=== PATIENT | male | born 1980 | race Caucasian/White ===

== ENCOUNTER 2016-09-05 11:38 | Emergency (ER) | payer OTHER ==
[2016-09-05] MEDS ORDERED: Sodium Chloride 0.9% 10 ML Syringe FLUSH PRN (12:03)
[2016-09-05] MEDS ORDERED: Labetalol 100 MG/20 ML MDV IVPUSH ONE ×2 (12:14→13:32)
[2016-09-05] MEDS ORDERED: Enalaprilat 1.25 MG/ML SDV IVPUSH ONE (12:15)
[2016-09-05] MEDS ORDERED: amLODIPine 5 MG Tab PO ONE (12:16)
--- NOTE | 2016-09-05 12:23 | EDM.PDOC ---
ED HISTORY OF PRESENT ILLNESS - General Chief Complaint: Cardiovascular Problem Stated Complaint: HIGH BLOOD PRESSURE Time Seen by Provider: 09/05/16 12:02 Source of Information: Reports: Patient History Limitations: Reports: No limitations - History of Present Illness INITIAL COMMENTS - FREE TEXT/NARRATIVE: Patient presents for evaluation and treatment of high blood pressure. Patient was sent over from the clinic. Report that he had a blood pressure of 220/160. He was seen his primary care provider today for headaches. States that he is having headaches on and off for about one month. He has been taking Excedrin, 7 or 8 tabs a day. He states that this helps with the headaches. Patient was previously on a blood pressure medication but he does not know what this is. He states that he has not taken them in several months. He reports associated symptoms of "little bit "chest pain for the last month. Reports shortness of breath. He states that he is always diaphoretic. No change in this. He denies any nausea or vomiting, cough, fevers, chills, cold symptoms, lightheadedness, dizziness, syncope, blurry vision or double vision. Patient reports a strong family history of MIs at young age. He reports that his father was in his 40s for during his first heart attack. Patient reports he smokes a pack and a half a day for the last 10 years. Aside from hypertension, he denies any other chronic medical conditions or any other medications. Patient denies any recent illnesses. He denies any recent travel. - Related Data Allergies/ADRs: Allergies Allergy/AdvReac Type Severity Reaction Status Date / Time No Known Allergies Allergy Verified 03/30/15 20:10 Home Meds: Home Meds Blood-Glucose Meter, Drum-Type [Accu-Chek] 1 each ASDIRECTED #1 kit 09/05/16 [Rx] Lancets [Accu-Chek] 1 each ASDIRECTED #1 box 09/05/16 [Rx] amLODIPine/Valsartan [Amlodipine-Valsartan 5-320 mg] 1 each PO DAILY #30 tablet 09/05/16 [Rx] metFORMIN [Glucophage XR] 500 mg PO BIDMEALS #60 tab.er 09/05/16 [Rx] Past Medical History Cardiovascular History: Reports: Hypertension Musculoskeletal History: Reports: Fracture Other Musculoskeletal History: collar bone left Neurological History: Reports: Headaches, chronic Social & Family History - Family History Family Medical History: Noncontributory Cardiac: Reports: Hypertension Other Cardiac Family History: parents - Tobacco Use Smoking Status *Q: Current Every Day Smoker Years of Tobacco use: 10 Packs/Tins Daily: 1.5 - Caffeine Use Caffeine Use: Reports: None - Recreational Drug Use Recreational Drug Use: No ED ROS GENERAL - Review of Systems Review Of Systems: See Below Constitutional: Reports: diaphoresis (chronic). Denies: fever HEENT: Denies: Vision change Respiratory: Reports: shortness of breath. Denies: cough Cardiovascular: Reports: Chest pain. Denies: Lightheadedness, Syncope GI/Abdominal: Denies: Nausea, Vomiting Neurological: Reports: headache. Denies: syncope ED EXAM, GENERAL - Physical Exam Exam: See Below Exam Limited By: No limitations General Appearance: alert, WD/WN, anxious Eye Exam: bilateral eye: PERRL Respiratory/Chest: no respiratory distress, lungs clear, normal breath sounds Cardiovascular: normal peripheral pulses, regular rate, rhythm, no murmur GI/Abdominal: soft, non tender Neurological: alert, oriented, normal cognition Psychiatric: normal affect, normal mood Skin Exam: Warm, Dry, Normal color EKG INTERPRETATION EKG Date: 09/05/16 Time: 12:15 Rhythm: NSR Rate (beats/min): 90 [place]: normal P-wave: present QRS: normal ST-T: normal QT: normal EKG Interpretation Comments: sinus rhythm at 90 bpm.Q waves in V1. Q waves in III and AVF - consider old inferior wall ID. Left artial hypertrophy. St elevation 2 - early repolarization pattern. Reviewed by myself and Dr. Akhtar. Course - Vital Signs Last Recorded V/S: Last Vital Signs Temp 37.1 C 09/05/16 11:50 Pulse 86 09/05/16 16:04 Resp 17 09/05/16 16:04 BP 165/93 H 09/05/16 16:04 Pulse Ox 94 L 09/05/16 16:04 - Orders/Labs/Meds Labs: Laboratory Tests 09/05/16 09/05/16 09/05/16 Range/Units 12:16 12:16 12:16 WBC 9.98 H (4.23-9.07) K/mm3 RBC 6.55 H (4.63-6.08) M/mm3 Hgb 18.1 H (13.7-17.5) gm/L Hct 51.7 H (40.1-51.0) % MCV 78.9 L (79.0-92.2) fl MCH 27.6 (25.7-32.2) pg MCHC 35.0 (32.2-35.5) g/dl RDW Std Deviation 40.4 (35.1-43.9) fL Plt Count 242 (163-337) K/mm3 MPV 9.6 (9.4-12.3) fl Neut % (Auto) 72.6 H (34.0-67.9) % Lymph % (Auto) 18.6 L (21.8-53.1) % [place] % (Auto) 6.8 (5.3-12.2) % Eos % (Auto) 1.6 (0.8-7.0) Baso % (Auto) 0.2 (0.1-1.2) % Neut # 7.24 H (1.78-5.38) K/mm3 Lymph # 1.86 (1.32-3.57) K/mm3 [place] # 0.68 (0.30-0.82) K/mm3 Eos # 0.16 (0.04-0.54) K/mm3 Baso # 0.02 (0.01-0.08) K/mm3 Manual Slide Review Abnormal smear PT (8.0-13.0) SECONDS INR Sodium 135 L (136-145) mEq/L Potassium 3.7 (3.5-5.1) mEq/L Chloride 99 (98-107) mEq/L Carbon Dioxide 27 (21-32) mEq/L Anion Gap 12.7 (5-15) BUN 14 (7-18) mg/dL Creatinine 1.2 (0.7-1.3) mg/dL Est Cr Clr Drug Dosing 94.31 mL/min Estimated GFR (MDRD) > 60 (>60) mL/min BUN/Creatinine Ratio 11.7 L (14-18) Glucose 304 H (74-106) mg/dL Hemoglobin A1c (4.50-6.20) % Calcium 8.8 (8.5-10.1) mg/dL Total Bilirubin 0.3 (0.2-1.0) mg/dL AST 29 (15-37) U/L ALT 34 (16-63) U/L Alkaline Phosphatase 97 (46-116) U/L CK-MB (CK-2) 0.9 (0-3.6) ng/ml Troponin I 0.018 (0.00-0.056) ng/mL B-Natriuretic Peptide (0-100) pg/mL Total Protein 7.1 (6.4-8.2) g/dl Albumin 3.1 L (3.4-5.0) g/dl Globulin 4.0 gm/dL Albumin/Globulin Ratio 0.8 L (1-2) TSH 3rd Generation 0.408 (0.358-3.74) uIU/mL Urine Color (Yellow) Urine Appearance (Clear) Urine pH (5.0-8.0) Ur Specific [place] (1.005-1.030) Urine Protein (Negative) Urine Glucose (UA) (Negative) Urine Ketones (Negative) Urine Occult Blood (Negative) Urine Nitrite (Negative) Urine Bilirubin (Negative) Urine Urobilinogen (0.2-1.0) Ur Leukocyte Esterase (Negative) Urine RBC (0-5) /hpf Urine WBC (0-5) /hpf Ur Squamous Epith Cells (0-5) /hpf Urine Bacteria (FEW) /hpf Urine Mucus (FEW) /hpf 09/05/16 09/05/16 09/05/16 Range/Units 12:16 12:16 12:16 WBC (4.23-9.07) K/mm3 RBC (4.63-6.08) M/mm3 Hgb (13.7-17.5) gm/L Hct (40.1-51.0) % MCV (79.0-92.2) fl MCH (25.7-32.2) pg MCHC (32.2-35.5) g/dl RDW Std Deviation (35.1-43.9) fL Plt Count (163-337) K/mm3 MPV (9.4-12.3) fl Neut % (Auto) (34.0-67.9) % Lymph % (Auto) (21.8-53.1) % [place] % (Auto) (5.3-12.2) % Eos % (Auto) (0.8-7.0) Baso % (Auto) (0.1-1.2) % Neut # (1.78-5.38) K/mm3 Lymph # (1.32-3.57) K/mm3 [place] # (0.30-0.82) K/mm3 Eos # (0.04-0.54) K/mm3 Baso # (0.01-0.08) K/mm3 Manual Slide Review PT 10.2 (8.0-13.0) SECONDS INR 0.94 Sodium (136-145) mEq/L Potassium (3.5-5.1) mEq/L Chloride (98-107) mEq/L Carbon Dioxide (21-32) mEq/L Anion Gap (5-15) BUN (7-18) mg/dL Creatinine (0.7-1.3) mg/dL Est Cr Clr Drug Dosing mL/min Estimated GFR (MDRD) (>60) mL/min BUN/Creatinine Ratio (14-18) Glucose (74-106) mg/dL Hemoglobin A1c 8.10 H (4.50-6.20) % Calcium (8.5-10.1) mg/dL Total Bilirubin (0.2-1.0) mg/dL AST (15-37) U/L ALT (16-63) U/L Alkaline Phosphatase (46-116) U/L CK-MB (CK-2) (0-3.6) ng/ml Troponin I (0.00-0.056) ng/mL B-Natriuretic Peptide 138 H (0-100) pg/mL Total Protein (6.4-8.2) g/dl Albumin (3.4-5.0) g/dl Globulin gm/dL Albumin/Globulin Ratio (1-2) TSH 3rd Generation (0.358-3.74) uIU/mL Urine Color (Yellow) Urine Appearance (Clear) Urine pH (5.0-8.0) Ur Specific [place] (1.005-1.030) Urine Protein (Negative) Urine Glucose (UA) (Negative) Urine Ketones (Negative) Urine Occult Blood (Negative) Urine Nitrite (Negative) Urine Bilirubin (Negative) Urine Urobilinogen (0.2-1.0) Ur Leukocyte Esterase (Negative) Urine RBC (0-5) /hpf Urine WBC (0-5) /hpf Ur Squamous Epith Cells (0-5) /hpf Urine Bacteria (FEW) /hpf Urine Mucus (FEW) /hpf 09/05/16 09/05/16 Range/Units 13:58 14:59 WBC (4.23-9.07) K/mm3 RBC (4.63-6.08) M/mm3 Hgb (13.7-17.5) gm/L Hct (40.1-51.0) % MCV (79.0-92.2) fl MCH (25.7-32.2) pg MCHC (32.2-35.5) g/dl RDW Std Deviation (35.1-43.9) fL Plt Count (163-337) K/mm3 MPV (9.4-12.3) fl Neut % (Auto) (34.0-67.9) % Lymph % (Auto) (21.8-53.1) % [place] % (Auto) (5.3-12.2) % Eos % (Auto) (0.8-7.0) Baso % (Auto) (0.1-1.2) % Neut # (1.78-5.38) K/mm3 Lymph # (1.32-3.57) K/mm3 [place] # (0.30-0.82) K/mm3 Eos # (0.04-0.54) K/mm3 Baso # (0.01-0.08) K/mm3 Manual Slide Review PT (8.0-13.0) SECONDS INR Sodium (136-145) mEq/L Potassium (3.5-5.1) mEq/L Chloride (98-107) mEq/L Carbon Dioxide (21-32) mEq/L Anion Gap (5-15) BUN (7-18) mg/dL Creatinine (0.7-1.3) mg/dL Est Cr Clr Drug Dosing mL/min Estimated GFR (MDRD) (>60) mL/min BUN/Creatinine Ratio (14-18) Glucose 275 H (74-106) mg/dL Hemoglobin A1c (4.50-6.20) % Calcium (8.5-10.1) mg/dL Total Bilirubin (0.2-1.0) mg/dL AST (15-37) U/L ALT (16-63) U/L Alkaline Phosphatase (46-116) U/L CK-MB (CK-2) (0-3.6) ng/ml Troponin I < 0.017 (0.00-0.056) ng/mL B-Natriuretic Peptide (0-100) pg/mL Total Protein (6.4-8.2) g/dl Albumin (3.4-5.0) g/dl Globulin gm/dL Albumin/Globulin Ratio (1-2) TSH 3rd Generation (0.358-3.74) uIU/mL Urine Color Yellow (Yellow) Urine Appearance Clear (Clear) Urine pH 7.0 (5.0-8.0) Ur Specific [place] 1.020 (1.005-1.030) Urine Protein 3+ H (Negative) Urine Glucose (UA) 2+ H (Negative) Urine Ketones Negative (Negative) Urine Occult Blood Trace-lysed H (Negative) Urine Nitrite Negative (Negative) Urine Bilirubin Negative (Negative) Urine Urobilinogen 0.2 (0.2-1.0) Ur Leukocyte Esterase Negative (Negative) Urine RBC 5-10 H (0-5) /hpf Urine WBC 0-5 (0-5) /hpf Ur Squamous Epith Cells 0-5 (0-5) /hpf Urine Bacteria Not seen (FEW) /hpf Urine Mucus Not seen (FEW) /hpf Meds: Medications Discontinued Medications Generic Name Dose Route Start Last Admin Trade Name Jessica PRN Reason Stop Dose Admin Amlodipine Besylate 10 mg 09/05/16 12:16 09/05/16 12:29 Norvasc PO 09/05/16 12:17 10 mg ONETIME ONE Administration Aspirin 324 mg 09/05/16 12:41 09/05/16 12:46 Aspirin PO 09/05/16 12:42 324 mg ONETIME ONE Administration Enalaprilat 1.25 mg 09/05/16 12:15 09/05/16 12:31 Vasotec Iv IVPUSH 09/05/16 12:16 1.25 mg ONETIME ONE Administration Insulin Human Regular 5 unit 09/05/16 14:16 09/05/16 14:39 Humulin R SUBCUT 09/05/16 14:17 5 units ONETIME ONE Administration Labetalol HCl 20 mg 09/05/16 12:14 09/05/16 12:35 Normodyne IVPUSH 09/05/16 12:15 4 ml ONETIME ONE Administration Labetalol HCl 20 mg 09/05/16 13:32 09/05/16 13:40 Normodyne IVPUSH 09/05/16 13:33 20 mg ONETIME ONE Administration Sodium Chloride 10 ml 09/05/16 12:03 09/05/16 12:38 Saline Flush FLUSH 10 ml ASDIRECTED PRN Administration Keep Vein Open - Radiology Interpretation Free Text/Narrative:: Chest [address] Nicole: heart size is enlarged but accentuated from portable technique. Mild tortuosity of the thoracic aorta is seen .Lungs are clear. Bony structures are grossly intact. - Re-Assessments/Exams Free Text/Narrative Re-Assessment/Exam: 09/05/16 12:15 b/p at 12:08 224/158 09/05/16 12:51 I contacted [facility]. Only blood pressure medication on file is amlodipine/ valsartan 5/320 this was filled on March 07, 2016. he was given a 30 day supply. No other blood pressure medications filled. No other recent prescriptions. 09/05/16 12:53 b/p at this time 181/125 09/05/16 13:33 Patient is currently sleeping. b/p at this time 177/ 115 - Will give an additional 20mg IV labetolol. Labs have returned. WBC is 9.98, hgb is 18.1 and plts are 242 Sodium is 135, potassium is 3.7 and chloride is 99. Anion gap is 12.7. glucose is 304 - hemoglobin a1c added to labs. Creatinine is 1.2 trop is within normal limits at 0.018 cKMB is 0.9 BNP is slightly elevated at 138 TSH is within normal limits at 0.408 Pt s 10.2, INR is 0.94 09/05/16 14:27 Patient is currently chest pain free. No shortness of breath. Headache is improved. b/p is 150/114 Plan to give subq insulin and recheck sugars. Will continue to monitor a short time in the ER. I informed the patient of his labs results. He has diabetes. I educated him he needs to stop smoking. He has multiple risk factors for an ID. 09/05/16 15:50 Repeat trop is negative at <0.017 glucose is now 275 - patient did eat after insulin A1c is 8.10 b/p is 165/93 Patient would like to go home at this time. He is concerned about his dogs. Will discharge home. Discharge instructions as documented. Departure - Departure Time of Disposition: 15:34 Disposition: Home, Self-Care 01 Condition: fair Clinical Impression: Hypertension, Diabetes Prescriptions: Blood-Glucose Meter, Drum-Type [Accu-Chek] 1 each ASDIRECTED #1 kit Lancets [Accu-Chek] 1 each ASDIRECTED #1 box amLODIPine/Valsartan [Amlodipine-Valsartan 5-320 mg] 1 each PO DAILY #30 tablet metFORMIN [Glucophage XR] 500 mg PO BIDMEALS #60 tab.er Instructions: Hypertension, [id number] Referrals: Tania Lam PA-C [Primary Care Provider] - Forms: ED Department Discharge Additional Instructions: Start the metformin today. Take 1 tab PO bid. Check you blood sugar three times a day, upon waking, around noon and around dinner. Please return if your blood sugars are > 300. Start the blood pressure medication tomorrow. Take 1 tab PO daily. Take you blood pressure daily. Record this and bring it to your follow-up. Please return to the ER if your systolic (top number) is > 200. Stop smoking. Follow-up with your PCP next week. Please return to the ER should your symptoms change or worsen.
[2016-09-05] MEDS ORDERED: Aspirin 81 MG Tab.Chew PO ONE (12:41)
--- NOTE | 2016-09-05 12:53 | CR ---
Chest: Portable view of the chest was obtained. Comparison: Previous chest x-ray of 03/30/15. Heart size is enlarged but accentuated from portable technique. Mild tortuosity of the thoracic aorta is seen. Lungs are clear. Bony structures are grossly intact. Impression: 1. Nothing acute is appreciated on portable chest x-ray. Diagnostic code #1
[2016-09-05] MEDS ORDERED: Insulin Regular, Human 100 Units/ML 3 ML Vial SUBCUT ONE (14:16)
[2016-09-05 16:07] VITALS: BP 165/93
== END 2016-09-05 15:53 | disposition home or self-care (01) ==
LOC: JD.ED 11:38
DX: I10 Essential (primary) hypertension (principal); E11.9 Type 2 diabetes mellitus without complications; F17.210 Nicotine dependence, cigarettes, uncomplicated; Z79.84 Long term (current) use of oral hypoglycemic drugs; Z79.899 Other long term (current) drug therapy
CPT/HCPCS: 36415; 71010; 80053; 81001; 82553; 82947; 83036; 83880; 84443; 84484; 85025; 85610; 93005; 96372; 96374; 96375; 96376; 99284; A9270; J1817; J7050

== ENCOUNTER 2017-05-05 15:57 | Observation (INO) | payer OTHER ==
[2017-05-05] MEDS ORDERED: Sodium Chloride 0.9% 1,000 ML IV ONE ×2 (16:13→16:21)
[2017-05-05] MEDS ORDERED: Sodium Chloride 0.9% 10 ML Syringe FLUSH PRN (16:13)
[2017-05-05] MEDS ORDERED: Insulin Regular, Human 100 Units/ML 3 ML Vial IV ONE (17:46)
--- NOTE | 2017-05-05 19:48 | EDM.PDOC ---
ED HPI GENERAL MEDICAL PROBLEM - General Chief Complaint: Diabetic Complaint Stated Complaint: DIABETIC ISSUES Time Seen by Provider: 05/05/17 16:00 Source of Information: Reports: Patient History Limitations: Reports: No Limitations - History of Present Illness INITIAL COMMENTS - FREE TEXT/NARRATIVE: 36-year-old male presents for evaluation and treatment of nausea, vomiting and abdominal discomfort. Reportedly the symptoms have been going on for the last 3 days. Patient saw his primary care provider, Tania Lam, today. He was found to have a blood sugar of 826. He is a known diabetic. Currently on Farxiga and metformin twice a day. He was given 1 L of fluids in the clinic instructed to return him to the ER. States prior to coming to the ER he stopped at [employer] and had some chicken nuggets. Reports current nausea, vomiting or abdominal discomfort. Denies any headaches. Patient's A1c the clinic today was 14.9. States he has been seen a hide tanner. Reports he never checks his blood sugars. Patient also complains of some chest pain. Reports this has been present for the last month. Has never seen anybody for this chest pain. Chest Pain Score (Numeric/FACES): 7 - Related Data Allergies Allergy/AdvReac Type Severity Reaction Status Date / Time No Known Allergies Allergy Verified 05/05/17 16:07 Home Meds: Home Meds Blood-Glucose Meter, Drum-Type [Accu-Chek] 1 each ASDIRECTED #1 kit 09/05/16 [Rx] Lancets [Accu-Chek] 1 each ASDIRECTED #1 box 09/05/16 [Rx] metFORMIN [Glucophage XR] 500 mg PO BIDMEALS #60 tab.er 09/05/16 [Rx] Dapagliflozin Propanediol [Farxiga] 10 mg PO DAILY 05/05/17 [History] amLODIPine/Valsartan [Amlodipine-Valsartan 5-320 mg] 10 - 320 mg PO DAILY [History] atorvaSTATin [Lipitor] 40 mg PO DAILY 05/05/17 [History] Past Medical History Cardiovascular History: Reports: Hypertension Gastrointestinal History: Reports: GERD Musculoskeletal History: Reports: Fracture Other Musculoskeletal History: collar bone left Neurological History: Reports: Headaches, Chronic Endocrine/Metabolic History: Reports: Diabetes, Type II Social & Family History - Family History Family Medical History: Noncontributory Cardiac: Reports: Hypertension Other Cardiac Family History: parents - Tobacco Use Smoking Status *Q: Current Every Day Smoker Years of Tobacco use: 15 Packs/Tins Daily: 1 - Caffeine Use Caffeine Use: Reports: Coffee, Soda - Recreational Drug Use Recreational Drug Use: No ED ROS GENERAL - Review of Systems Review Of Systems: See Below Cardiovascular: Reports: Chest Pain GI/Abdominal: Reports: Abdominal Pain, Nausea, Vomiting Neurological: Denies: Headache ED EXAM GENERAL NO PERIP PULSE - Physical Exam Exam: See Below Exam Limited By: No Limitations General Appearance: Alert, WD/WN, No Apparent Distress Ears: Normal External Exam Nose: Normal Inspection Throat/Mouth: Normal Inspection, Other (dry mucus membranes) Respiratory/Chest: No Respiratory Distress, Lungs Clear Cardiovascular: Normal Peripheral Pulses, Regular Rate, Rhythm, No Murmur GI/Abdominal: Soft, Non-Tender Neurological: Alert, Normal Cognition Psychiatric: Normal Affect, Normal Mood Skin Exam: Warm, Dry, Normal Color EKG INTERPRETATION EKG Date: 05/05/17 Time: 16:35 Rhythm: NSR Rate (Beats/Min): 93 [place]: Normal P-Wave: Present QRS: Normal ST-T: Normal QT: Normal Comparison: NA - No Prior EKG EKG Interpretation Comments: NSR at 93 bpm. No ischemic changes. Early repolarization. No significant changes from 09-05-16. Reviewed by myself and Dr. Rico. Course - Vital Signs Last Recorded V/S: Last Vital Signs Temp 36.6 C 05/05/17 21:40 Pulse 82 05/05/17 21:40 Resp 16 05/05/17 21:40 BP 164/96 H 05/05/17 21:40 Pulse Ox 94 L 05/05/17 22:35 - Orders/Labs/Meds Orders: Active Orders 24 hr Category Date Time Status Cardiac Monitoring [RC] . DIRECTED Care 05/05/17 16:22 Active EKG 12 Lead [EKG Documentation Completion] [RC] STAT Care 05/05/17 16:21 Active Chest 1V Frontal [CR] Stat Exams 05/05/17 17:13 Taken Sodium Chloride 0.9% [Saline Flush] Med 05/05/17 16:13 Active 10 ml FLUSH ASDIRECTED PRN Peripheral IV Insertion Adult [OM.PC] Routine Oth 05/05/17 16:13 Ordered Medication Orders Acetaminophen (Tylenol) 650 mg PO Q4H PRN PRN Reason: Pain (Mild 1-3)/fever Albuterol/Ipratropium (Duoneb 3.0-0.5 Mg/3 Ml) 3 ml NEB Q4H PRN PRN Reason: Shortness Of Breath/wheezing Amlodipine Besylate (Norvasc) 5 mg PO DAILY [facility], [facility] Dextrose/Water (Dextrose 50% In Water) 50 ml IVPUSH ASDIRECTED PRN PRN Reason: Hypoglycemia Hydralazine HCl (Apresoline) 20 mg PO Q6H PRN PRN Reason: Hypertension Sodium Chloride (Normal Saline) 1,000 mls @ 100 mls/hr IV ASDIRECTED [facility], [facility]–1983 Last Admin: 05/05/17 20:31 Dose: 125 mls/hr Insulin Aspart (Novolog) 0 unit SUBCUT QIDACANDBED FORMERLY [facility], 1928–1983 PRN Reason: Protocol Losartan Potassium (Cozaar) 150 mg PO DAILY [facility] Metoprolol Tartrate (Lopressor) 5 mg IVPUSH Q4H PRN PRN Reason: Tachycardia Miscellaneous Information (Remove Patch) 1 ea TRDERM DAILY [facility], [facility] Nicotine (Habitrol) 21 mg TRDERM DAILY [facility]1983 Ondansetron HCl (Zofran Odt) 4 mg PO Q6H PRN PRN Reason: nausea, able to take PO Ondansetron HCl (Zofran) 4 mg IV Q6H PRN PRN Reason: Nausea/Vomiting Rosuvastatin Calcium (Crestor) 10 mg PO DAILY [facility] Sodium Chloride (Saline Flush) 10 ml FLUSH ASDIRECTED PRN PRN Reason: Keep Vein Open Last Admin: 05/05/17 16:24 Dose: 10 ml Labs: Laboratory Tests 05/05/17 05/05/17 05/05/17 Range/Units 16:13 16:23 16:23 WBC 9.98 H (4.23-9.07) K/mm3 RBC 5.63 (4.63-6.08) M/mm3 Hgb 15.9 (13.7-17.5) gm/L Hct 45.2 (40.1-51.0) % MCV 80.3 (79.0-92.2) fl MCH 28.2 (25.7-32.2) pg MCHC 35.2 (32.2-35.5) g/dl RDW Std Deviation 39.1 (35.1-43.9) fL Plt Count 203 (163-337) K/mm3 MPV 10.0 (9.4-12.3) fl Neut % (Auto) 54.5 (34.0-67.9) % Lymph % (Auto) 31.8 (21.8-53.1) % [place] % (Auto) 10.8 (5.3-12.2) % Eos % (Auto) 2.2 (0.8-7.0) Baso % (Auto) 0.3 (0.1-1.2) % Neut # (Auto) 5.44 H (1.78-5.38) K/mm3 Lymph # (Auto) 3.17 (1.32-3.57) K/mm3 [place] # (Auto) 1.08 H (0.30-0.82) K/mm3 Eos # (Auto) 0.22 (0.04-0.54) K/mm3 Baso # (Auto) 0.03 (0.01-0.08) K/mm3 Puncture Site Lt radial ABG pH 7.42 (7.35-7.45) ABG pCO2 39.1 (35.0-45.0) mmHg ABG pO2 84.0 (80.0-100.0) mmHg ABG HCO3 25.0 (22.0-26.0) meq/L ABG O2 Saturation 97.6 H (96.0-97.0) % ABG Base Excess 1.1 (-2-2.0) Ray Test Positive FiO2 0.00 L (21.00-100.00) % Sodium 134 L (136-145) mEq/L Potassium 3.9 (3.5-5.1) mEq/L Chloride 98 (98-107) mEq/L Carbon Dioxide 27 (21-32) mEq/L Anion Gap 12.9 (5-15) BUN 17 (7-18) mg/dL Creatinine 1.2 (0.7-1.3) mg/dL Est Cr Clr Drug Dosing 93.41 mL/min Estimated GFR (MDRD) > 60 (>60) mL/min BUN/Creatinine Ratio 14.2 (14-18) Glucose 584 H* (74-106) mg/dL Serum Osmolality 314 H (280-300) mosm/kg Calcium 8.6 (8.5-10.1) mg/dL Magnesium (1.8-2.4) mg/dl Total Bilirubin 0.4 (0.2-1.0) mg/dL AST 29 (15-37) U/L ALT 43 (16-63) U/L Alkaline Phosphatase 104 (46-116) U/L Troponin I (0.00-0.056) ng/mL C-Reactive Protein (<1.0) mg/dL Total Protein 6.5 (6.4-8.2) g/dl Albumin 2.8 L (3.4-5.0) g/dl Globulin 3.7 gm/dL Albumin/Globulin Ratio 0.8 L (1-2) Urine Color (Yellow) Urine Appearance (Clear) Urine pH (5.0-8.0) Ur Specific [place] (1.005-1.030) Urine Protein (Negative) Urine Glucose (UA) (Negative) Urine Ketones (Negative) Urine Occult Blood (Negative) Urine Nitrite (Negative) Urine Bilirubin (Negative) Urine Urobilinogen (0.2-1.0) Ur Leukocyte Esterase (Negative) Urine RBC (0-5) /hpf Urine WBC (0-5) /hpf Ur Epithelial Cells (0-5) /hpf Urine Bacteria (FEW) /hpf Urine Mucus (FEW) /hpf Ketones (0.0-0.3) mM 05/05/17 05/05/17 05/05/17 Range/Units 16:23 16:23 17:30 WBC (4.23-9.07) K/mm3 RBC (4.63-6.08) M/mm3 Hgb (13.7-17.5) gm/L Hct (40.1-51.0) % MCV (79.0-92.2) fl MCH (25.7-32.2) pg MCHC (32.2-35.5) g/dl RDW Std Deviation (35.1-43.9) fL Plt Count (163-337) K/mm3 MPV (9.4-12.3) fl Neut % (Auto) (34.0-67.9) % Lymph % (Auto) (21.8-53.1) % [place] % (Auto) (5.3-12.2) % Eos % (Auto) (0.8-7.0) Baso % (Auto) (0.1-1.2) % Neut # (Auto) (1.78-5.38) K/mm3 Lymph # (Auto) (1.32-3.57) K/mm3 [place] # (Auto) (0.30-0.82) K/mm3 Eos # (Auto) (0.04-0.54) K/mm3 Baso # (Auto) (0.01-0.08) K/mm3 Puncture Site ABG pH (7.35-7.45) ABG pCO2 (35.0-45.0) mmHg ABG pO2 (80.0-100.0) mmHg ABG HCO3 (22.0-26.0) meq/L ABG O2 Saturation (96.0-97.0) % ABG Base Excess (-2-2.0) Ray Test FiO2 (21.00-100.00) % Sodium (136-145) mEq/L Potassium (3.5-5.1) mEq/L Chloride (98-107) mEq/L Carbon Dioxide (21-32) mEq/L Anion Gap (5-15) BUN (7-18) mg/dL Creatinine (0.7-1.3) mg/dL Est Cr Clr Drug Dosing mL/min Estimated GFR (MDRD) (>60) mL/min BUN/Creatinine Ratio (14-18) Glucose (74-106) mg/dL Serum Osmolality (280-300) mosm/kg Calcium (8.5-10.1) mg/dL Magnesium 2.0 (1.8-2.4) mg/dl Total Bilirubin (0.2-1.0) mg/dL AST (15-37) U/L ALT (16-63) U/L Alkaline Phosphatase (46-116) U/L Troponin I < 0.017 (0.00-0.056) ng/mL C-Reactive Protein 0.7 (<1.0) mg/dL Total Protein (6.4-8.2) g/dl Albumin (3.4-5.0) g/dl Globulin gm/dL Albumin/Globulin Ratio (1-2) Urine Color Yellow (Yellow) Urine Appearance Clear (Clear) Urine pH 6.0 (5.0-8.0) Ur Specific [place] 1.010 (1.005-1.030) Urine Protein 1+ H (Negative) Urine Glucose (UA) 2+ H (Negative) Urine Ketones Negative (Negative) Urine Occult Blood Trace-intact H (Negative) Urine Nitrite Negative (Negative) Urine Bilirubin Negative (Negative) Urine Urobilinogen 0.2 (0.2-1.0) Ur Leukocyte Esterase Trace H (Negative) Urine RBC 0-5 (0-5) /hpf Urine WBC 5-10 H (0-5) /hpf Ur Epithelial Cells 0-5 (0-5) /hpf Urine Bacteria Few (FEW) /hpf Urine Mucus Not seen (FEW) /hpf Ketones 0.15 (0.0-0.3) mM Meds: Medications Generic Name Dose Route Start Last Admin Trade Name Freq PRN Reason Stop Dose Admin Acetaminophen 650 mg 05/05/17 21:52 Tylenol PO Q4H PRN Pain (Mild 1-3)/fever Albuterol/Ipratropium 3 ml 05/05/17 21:52 Duoneb 3.0-0.5 Mg/3 Ml NEB Q4H PRN Shortness Of Breath/wheezing Amlodipine Besylate 5 mg 05/06/17 09:00 Norvasc PO DAILY [facility], [facility]–1983 Dextrose/Water 50 ml 05/05/17 22:07 Dextrose 50% In Water IVPUSH ASDIRECTED PRN Hypoglycemia Hydralazine HCl 20 mg 05/05/17 22:48 Apresoline PO Q6H PRN Hypertension Sodium Chloride 1,000 mls @ 100 mls/hr 05/05/17 20:15 05/05/17 20:31 Normal Saline IV 125 mls/hr ASDIRECTED [facility], [facility]1983 Administration Insulin Aspart 0 unit 05/05/17 22:15 Novolog SUBCUT QIDACANDBED [facility], [facility]–1983 Protocol Losartan Potassium 150 mg 05/06/17 09:00 Cozaar PO DAILY [facility]1983 Metoprolol Tartrate 5 mg 05/05/17 22:48 Lopressor IVPUSH Q4H PRN Tachycardia Miscellaneous Information 1 ea 05/06/17 09:00 Remove Patch TRDERM DAILY [facility], [facility]1983 Nicotine 21 mg 05/06/17 09:00 Habitrol TRDERM DAILY [facility]1983 Ondansetron HCl 4 mg 05/05/17 21:52 Zofran Odt PO Q6H PRN nausea, able to take PO Ondansetron HCl 4 mg 05/05/17 21:52 Zofran IV Q6H PRN Nausea/Vomiting Rosuvastatin Calcium 10 mg 05/06/17 09:00 Crestor PO DAILY SERA Sodium Chloride 10 ml 05/05/17 16:13 05/05/17 16:24 Saline Flush FLUSH 10 ml ASDIRECTED PRN Administration Keep Vein Open Discontinued Medications Generic Name Dose Route Start Last Admin Trade Name Jessica PRN Reason Stop Dose Admin Sodium Chloride 1,000 mls @ 999 mls/hr 05/05/17 16:13 05/05/17 16:25 Normal Saline IV 05/05/17 17:13 999 mls/hr ONETIME ONE Administration Sodium Chloride 1,000 mls @ 999 mls/hr 05/05/17 16:21 05/05/17 17:36 Normal Saline IV 05/05/17 17:21 999 mls/hr ONETIME ONE Administration Insulin Human Regular 100 unit 101 mls @ 0 mls/hr 05/05/17 18:00 05/05/17 18: 56 / Sodium Chloride IV 0.04 unit/kg/hr TITRATE SERA 5.5 mls/hr Protocol Administration 0.05 UNIT/KG/HR Insulin Human Regular 5 unit 05/05/17 17:46 05/05/17 18:54 Humulin R IV 05/05/17 17:47 5 unit ONETIME ONE Administration Nicotine 21 mg 05/05/17 20:42 05/05/17 20:51 Habitrol TRDERM 05/05/17 20:43 21 mg ONETIME ONE Administration - Radiology Interpretation Free Text/Narrative:: 1 view chest xray shows no acute intrathoracic process. - Re-Assessments/Exams Free Text/Narrative Re-Assessment/Exam: 05/05/17 18:56 I reviewed the labs, EKG and chest x-ray with the patient. Given his elevated blood sugar of 826 prior to arrival in the ER and his continued elevated blood sugars in the 500s on the ER we'll plan to admit him. He has received 5 units the bolus and started drip of 0.05 units per kilogram per hour. I spoke with Dr. Bradley, hospitalist on-call, she agrees to admit the patient. .05/05/17 20:38 Blood sugar at this time is 271. Insulin drip stopped. 05/05/17 20:51 Patient is asking for a nicotine patch. Reports he smokes 2 packs a day. 21mg patch applied. Departure - Departure Time of Disposition: 21:30 Disposition: Refer to Observation Condition: Fair Clinical Impression: Hyperglycemia, Hyperosmolality - Discharge Information - My Orders Last 24 Hours: My Active Orders 05/05/17 16:13 Sodium Chloride 0.9% [Saline Flush] 10 ml FLUSH ASDIRECTED PRN Peripheral IV Insertion Adult [OM.PC] Routine 05/05/17 16:21 EKG 12 Lead [EKG Documentation Completion] [RC] STAT 05/05/17 16:22 Cardiac Monitoring [RC] . DIRECTED 05/05/17 17:13 Chest 1V Frontal [CR] Stat - Assessment/Plan Last 24 Hours: My Active Orders 05/05/17 16:13 Sodium Chloride 0.9% [Saline Flush] 10 ml FLUSH ASDIRECTED PRN Peripheral IV Insertion Adult [OM.PC] Routine 05/05/17 16:21 EKG 12 Lead [EKG Documentation Completion] [RC] STAT 05/05/17 16:22 Cardiac Monitoring [RC] . DIRECTED 05/05/17 17:13 Chest 1V Frontal [CR] Stat
--- NOTE | 2017-05-05 20:15 | PCM.HP ---
H&P History of Present Illness - General Date of Service: 05/05/17 Source of Information: Patient, Old Records, Provider, RN, Significant Other History Limitations: Reports: No Limitations - History of Present Illness Initial Comments - Free Text/Narative: Jhony Wong is a 36 yo male who presented to our ED today after being sent over from [facility] in [place]. He was seen today by GIOVANA Cisneros for nausea, vomiting and abdominal discomfort. He reports symptoms have been ongoing for the last 3 days. He was found to have a blood sugar of 826. His known diabetic currently on Farxiga and metformin twice a day. He was given 1 L of fluids at the clinic and told to report to the ER for further treatment. Prior to presenting across the street in the ED he reportedly went to [employer] to eat some chicken nuggets. In the ER he reported nausea, vomiting, and abdominal discomfort. Denied any headaches. A1c was checked at [place] and found to be 14.9. He reported he sees a rn diabetes educator, however he states he "never checks his blood sugars." While in the ED he also complained of some chest pain that has been present for the last month. He had not seen anybody for this. Once in the ER at 12-lead EKG was obtained. His agricultural and forestry supervisor by the ER provider as normal sinus rhythm at 93 bpm. There was no ectopy noted and no changes from prior EKG obtained 09/05/16. Vital signs were temp normal at 36.6 Celsius. Pulse 100. Respirations slightly elevated at 24. Blood pressure 150/102. Pulse ox 94. Labs were obtained: WBC slightly elevated at 9.98. Hemoglobin normal at 15.9 and hematocrit 45.2. He was normocytic. Platelet normal at 203, 000. Neutrophils normal at 54.5%. ABG was obtained and the left radial. PH normal at 7.42. PCO2 normal at 39.1. PO2 normal at 84. Bicarbonate normal at 25. Oxygen saturation elevated at 97.6. Base excess 1.1. This is on 0 L of oxygen. Sodium was slightly low at 134. Potassium normal 3.9. Chloride 98. Carbon dioxide 27. Anion gap was normal at 12.9. BUN was normal at 17. Creatinine on the high end of normal at 1.2. EGFR greater than 60. Glucose on presentation to the ED was 584. Serum osmolality high at 314. Calcium 8.6. Magnesium 2.0. Total bilirubin 0.4. Liver enzymes were good with AST at 29. ALT 43. Alkaline phosphatase at 104. Troponin and was negative at 0.017. CRP was 0.7. Albumin was low at 2.8. UA was negative however one plus protein and 2+ glucose was noted. There was trace intact urine occult blood. Few urine bacteria were seen. Urine ketones were normal at 0.15. The patient was given multiple saline boluses as well as an insulin drip. Humulin R 5 units was given. A 21 mg Habitrol patch was also applied. Chest x-ray was obtained and no acute changes were noted pending radiologist read. The patient carries a medical history of hypertension, GERD, chronic headaches, type II DM. He is a current every day smoker and reports one to 2 packs daily. He was subsequently admitted for observation to the medical floor. He would like to be a DNR/DNI. His PCP is Tania Lam PA-C at [facility] in [place]. Chest Pain Score (Numeric/FACES): 0 - Related Data Allergies/Adverse Reactions: Allergies Allergy/AdvReac Type Severity Reaction Status Date / Time No Known Allergies Allergy Verified 05/05/17 16:07 Home Medications: Home Meds Blood-Glucose Meter, Drum-Type [Accu-Chek] 1 each ASDIRECTED #1 kit 09/05/16 [Rx] Lancets [Accu-Chek] 1 each ASDIRECTED #1 box 09/05/16 [Rx] metFORMIN [Glucophage XR] 500 mg PO BIDMEALS #60 tab.er 09/05/16 [Rx] Dapagliflozin Propanediol [Farxiga] 10 mg PO DAILY 05/05/17 [History] amLODIPine/Valsartan [Amlodipine-Valsartan 5-320 mg] 10 - 320 mg PO DAILY [History] atorvaSTATin [Lipitor] 40 mg PO DAILY 05/05/17 [History] Past Medical History Cardiovascular History: Reports: Hypertension Gastrointestinal History: Reports: GERD Musculoskeletal History: Reports: Fracture Other Musculoskeletal History: collar bone left Neurological History: Reports: Headaches, Chronic Endocrine/Metabolic History: Reports: Diabetes, Type II Social & Family History - Family History Family Medical History: Noncontributory Cardiac: Reports: Hypertension Other Cardiac Family History: parents - Tobacco Use Smoking Status *Q: Current Every Day Smoker Years of Tobacco use: 15 Packs/Tins Daily: 1 - Caffeine Use Caffeine Use: Reports: Coffee, Soda - Recreational Drug Use Recreational Drug Use: No H&P Review of Systems - Review of Systems: Review Of Systems: See Below General: Reports: No Symptoms. Denies: Fever, Chills, Weakness, Fatigue, Diaphoresis, Decreased Appetite HEENT: Reports: No Symptoms. Denies: Dysphasia, Ear Pain, Eye Pain, Headaches, Hearing Changes, Post Nasal Drip, Sore Throat, Visual Changes Pulmonary: Reports: No Symptoms. Denies: Shortness of Breath, Wheezing, Pleuritic Chest Pain, Cough, Sputum Cardiovascular: Reports: No Symptoms. Denies: Chest Pain, Palpitations, Dyspnea on Exertion, PND, Edema, Lightheadedness Gastrointestinal: Reports: No Symptoms. Denies: Abdominal Pain, Anorexia, Black Stool, Bloody Stool, Constipation, Diarrhea, Nausea, Vomiting Genitourinary: Reports: No Symptoms. Denies: Dysuria, Frequency, Burning, Pain , Urgency Musculoskeletal: Reports: No Symptoms. Denies: Neck Pain, Shoulder Pain, Arm Pain, Back Pain, Hand Pain, Leg Pain, Foot Pain, Joint Pain, Joint Swelling, Muscle Pain, Muscle Stiffness Skin: Reports: No Symptoms Psychiatric: Reports: No Symptoms. Denies: Confusion, Depression, Mood Lability , Anxiety, Hallucinations Neurological: Reports: No Symptoms. Denies: Confusion, Dizziness, Headache, Numbness, Pre-Existing Deficit, Tingling, Trouble Speaking, Difficulty Walking, Weakness, Change in Speech, Gait Disturbance Hematologic/Lymphatic: Reports: No Symptoms Immunologic: Reports: No Symptoms Exam - Exam Exam: See Below - Vital Signs Vital Signs: Last Vital Signs Temp 97.9 F 05/05/17 16:07 Pulse 100 05/05/17 16:07 Resp 24 H 05/05/17 16:07 BP 150/102 H 05/05/17 16:07 Pulse Ox 94 L 05/05/17 16:07 Weight: 244 lb - Exam Quality Assessment: DVT Prophylaxis General: Alert, Oriented, Cooperative. No: Mild Distress HEENT: Conjunctiva Clear, EACs Clear, EOMI, Hearing Intact, Mucosa Moist & Jenera , Nares Patent, Normal Nasal Septum, Posterior Pharynx Clear, PERRLA Neck: Supple, Trachea Midline. No: JVD Lungs: Clear to Auscultation, Normal Respiratory Effort, Decreased Breath Sounds Cardiovascular: Regular Rate, Regular Rhythm GI/Abdominal Exam: Normal Bowel Sounds, Soft, Non-Tender, No Organomegaly, No Distention, No Abnormal Bruit, No Mass, Pelvis Stable (Male) Exam: Deferred Rectal (Males) Exam: Deferred Back Exam: Normal Inspection, Full Range of Motion Extremities: Normal Inspection, Normal Range of Motion, Non-Tender, No Pedal Edema, Normal Capillary Refill Peripheral Pulses: 2+: Radial (L), Radial (R), Posterior Tibial (L), Posterior Tibial (R), Dorsalis Pedis (L), Dorsalis Pedis (R) Skin: Warm, Dry, Intact Neurological: Cranial Nerves Intact (Grossly) Neuro Extensive - Mental Status: Alert, Oriented x3, Normal Mood/Affect, Normal Cognition, Memory Intact Neuro Extensive - Motor, Sensory, Reflexes: CN II-XII Intact (Grossly) Psychiatric: Alert, Normal Affect, Normal Mood - Patient Data Result Diagrams: 05/05/17 16:23 05/05/17 16:23 *Q Meaningful Use (ADM) - VTE *Q VTE Criteria *Q: - Stroke *Q Stroke Criteria *Q: - AMI *Q AMI Criteria *Q: - Problem List (1) Hyperglycemia due to type 2 diabetes mellitus SNOMED Code(s): 487232178376688 ICD Code: E11.65 - TYPE 2 DIABETES MELLITUS WITH HYPERGLYCEMIA Status: Acute Priority: High Current Visit: Yes Qualifiers: Diabetes mellitus exterminator termite insulin use: without custodial use Qualified Code(s): E11.65 - Type 2 diabetes mellitus with hyperglycemia (2) Diabetes SNOMED Code(s): 23311733 ICD Code: E11.9 - TYPE 2 DIABETES MELLITUS WITHOUT COMPLICATIONS Status: Chronic Priority: High Current Visit: Yes Qualifiers: Diabetes mellitus type: type 2 Diabetes mellitus complication status: with unspecified complications Diabetes mellitus custodial insulin use: without exterminator termite use Qualified Code(s): E11.8 - Type 2 diabetes mellitus with unspecified complications (3) Hypertension SNOMED Code(s): 66832041 ICD Code: I10 - ESSENTIAL (PRIMARY) HYPERTENSION Status: Chronic Priority : Low Current Visit: No Qualifiers: Hypertension type: essential hypertension Qualified Code(s): I10 - Essential (primary) hypertension (4) Hyperlipidemia associated with type 2 diabetes mellitus SNOMED Code(s): 172224208820 ICD Code: E11.69 - TYPE 2 DIABETES MELLITUS WITH OTHER SPECIFIED COMPLICATION ; E78.5 - HYPERLIPIDEMIA, UNSPECIFIED Status: Chronic Priority: Low Current Visit: No (5) Obesity (BMI 30.0-34.9) SNOMED Code(s): 372357921 ICD Code: E66.9 - OBESITY, UNSPECIFIED Status: Chronic Priority: High Current Visit: Yes (6) Tobacco use disorder SNOMED Code(s): 364148892 ICD Code: F17.200 - NICOTINE DEPENDENCE, UNSPECIFIED, UNCOMPLICATED Status : Chronic Priority: High Current Visit: Yes Problem List Initiated/Reviewed/Updated: Yes Orders Last 24hrs: Active Orders 24 hr Category Date Time Status Sodium Chloride 0.9% [Normal Saline] 1,000 ml Med 05/05/17 20:15 Active IV ASDIRECTED Medication Orders Insulin Human Regular 100 unit (/ Sodium Chloride) 101 mls @ 0 mls/hr IV TITRATE SERA; 0.05 UNIT/KG/HR PRN Reason: Protocol Last Admin: 05/05/17 18:56 Dose: 0.04 unit/kg/hr, 5.5 mls/hr Sodium Chloride (Normal Saline) 1,000 mls @ 125 mls/hr IV ASDIRECTED SERA Sodium Chloride (Saline Flush) 10 ml FLUSH ASDIRECTED PRN PRN Reason: Keep Vein Open Last Admin: 05/05/17 16:24 Dose: 10 ml Assessment/Plan Comment:: I/P: Hyperglycemia with Type II DM -Blood glucose reportedly 826 at [place], 584 at ED presentation and 271 prior to being admitted for observation -ABG good -Serum osmolality 314 -Anion gap 12.9 -Given 1L bolus at [place] and multiple boluses of NS in ED -Insulin drip started in ED - discontinued -A1C reportedly 14.9 at [place] -Pt. reports he has glucometer at home but never checks sugars as he "is afraid of needles." -He reportedly sees rn diabetes educator at [place] -Had conversation with patient about possible complications of diabetes including blindness, limb amputation, cardiac complications, and ED. -ADA diet -Hold oral diabetic meds for now -Sliding scale insulin with blood glucose checks as ordered -Fluids as ordered -natural resources extension educator consult -Dietitian consult Chronic: HTN - home meds and PRN BP meds GERD - stable Chronic headaches Tobacco use disorder -nicotine patch and smoking cessation counseling Obesity - dietitian consult Plan: Admit to observation with telemetry. CM/SW for discharge planning Home medications as indicated Routine AM labs PE/DVT prophylaxis: ambulation and VASYL Hose Other orders as indicated above Code status: DNR/DNI. His PCP is Tania Lam PA-C at [facility] here in [place]
[2017-05-05] MEDS: Sodium Chloride 0.9% 1,000 ML IV SCH (20:31)
[2017-05-05] MEDS ORDERED: Nicotine 21 MG/24 Hr Patch TRDERM ONE (20:42)
[2017-05-05] MEDS ORDERED: Albuterol/Ipratropium 3.0-0.5 MG/3 ML Neb Soln NEB PRN (21:52)
[2017-05-05] MEDS ORDERED: Acetaminophen 325 MG Tab PO PRN (21:52)
[2017-05-05] MEDS ORDERED: Ondansetron 4 MG Tab.DIS PO PRN (21:52)
[2017-05-05] MEDS ORDERED: Ondansetron 4 MG/2 ML SDV IV PRN (21:52)
[2017-05-05] MEDS ORDERED: 50% Dextrose in Water 50 ML Syringe IVPUSH PRN (22:07)
[2017-05-05] MEDS ORDERED: Metoprolol Tartrate 5 MG/5 ML SDV IVPUSH PRN (22:48)
[2017-05-05] MEDS ORDERED: hydrALAZINE 10 MG Tab PO PRN (22:48)
[2017-05-05] MEDS: Insulin Aspart 100 Units/ML 3 ML Pen SUBCUT SCH (23:55)
[2017-05-06] MEDS: Insulin Aspart 100 Units/ML 3 ML Pen SUBCUT SCH ×4 (06:42→21:37)
[2017-05-06] MEDS: Sodium Chloride 0.9% 1,000 ML IV SCH (06:43)
[2017-05-06] MEDS: Losartan 100 MG Tab PO SCH (08:51)
[2017-05-06] MEDS: Rosuvastatin 10 MG Tab PO SCH (08:53)
[2017-05-06] MEDS: Nicotine 21 MG/24 Hr Patch TRDERM SCH (08:53)
[2017-05-06] MEDS ORDERED: AMLODIPINE PO SCH (09:00)
[2017-05-06] MEDS ORDERED: VALSARTAN PO SCH (09:00)
[2017-05-06] MEDS ORDERED: [UNRECOGNIZED DRUG - OTHER] PO SCH (09:00)
[2017-05-06] MEDS ORDERED: Non-Formulary Medication 1 Each (Atorvastatin 40 MG) PO SCH (09:00)
[2017-05-06] MEDS ORDERED: amLODIPine 5 MG Tab PO SCH (09:00)
--- NOTE | 2017-05-06 09:41 | CR ---
Chest: Portable view of the chest was obtained. Comparison: Prior portable chest x-ray of 09/05/16. Heart size appears within normal limits for portable technique. Mild tortuosity of the thoracic aorta is seen. Lungs are clear. Bony structures are grossly intact. Impression: 1. Nothing acute is identified on portable chest x-ray. Diagnostic code #1
[2017-05-06] MEDS: metFORMIN 500 MG Tab PO SCH ×2 (10:45→17:11)
[2017-05-06] MEDS: Magnesium Oxide 400 MG Tab PO SCH ×2 (10:45→21:37)
[2017-05-06] MEDS ORDERED: hydrALAZINE 20 MG/ML SDV IVPUSH PRN (13:53)
--- NOTE | 2017-05-06 18:53 | PCM.PN ---
- General Info Date of Service: 05/06/17 Functional Status: Reports: Tolerating Diet, Ambulating - Review of Systems General: Reports: No Symptoms HEENT: Reports: No Symptoms Pulmonary: Reports: No Symptoms Cardiovascular: Reports: No Symptoms Gastrointestinal: Reports: No Symptoms Genitourinary: Reports: No Symptoms Musculoskeletal: Reports: No Symptoms Skin: Reports: No Symptoms Neurological: Reports: No Symptoms Psychiatric: Reports: No Symptoms - Patient Data Vitals - Most Recent: Last Vital Signs Temp 36.6 C 05/06/17 15:57 Pulse 107 H 05/06/17 15:57 Resp 19 05/06/17 15:57 BP 159/84 H 05/06/17 15:57 Pulse Ox 96 05/06/17 15:57 Weight - Most Recent: 109.452 kg I&O - Last 24 Hours: Intake & Output 05/06/17 05/06/17 05/06/17 06:59 14:59 22:59 Intake Total 3000 480 2100 Output Total 1000 2800 Balance 2000 480 -700 Lab Results Last 24 Hours: Laboratory Results - last 24 hr 05/05/17 05/06/17 05/06/17 Range/Units 22:56 06:05 06:28 WBC 8.63 (4.23-9.07) K/mm3 RBC 5.74 (4.63-6.08) M/mm3 Hgb 16.1 (13.7-17.5) gm/L Hct 46.3 (40.1-51.0) % MCV 80.7 (79.0-92.2) fl MCH 28.0 (25.7-32.2) pg MCHC 34.8 (32.2-35.5) g/dl RDW Std Deviation 39.7 (35.1-43.9) fL Plt Count 205 (163-337) K/mm3 MPV 9.9 (9.4-12.3) fl Neut % (Auto) 52.2 (34.0-67.9) % Lymph % (Auto) 34.9 (21.8-53.1) % Sabine % (Auto) 9.5 (5.3-12.2) % Eos % (Auto) 2.7 (0.8-7.0) Baso % (Auto) 0.2 (0.1-1.2) % Neut # (Auto) 4.51 (1.78-5.38) K/mm3 Lymph # (Auto) 3.01 (1.32-3.57) K/mm3 Sabine # (Auto) 0.82 (0.30-0.82) K/mm3 Eos # (Auto) 0.23 (0.04-0.54) K/mm3 Baso # (Auto) 0.02 (0.01-0.08) K/mm3 Sodium (136-145) mEq/L Potassium (3.5-5.1) mEq/L Chloride (98-107) mEq/L Carbon Dioxide (21-32) mEq/L Anion Gap (5-15) BUN (7-18) mg/dL Creatinine (0.7-1.3) mg/dL Est Cr Clr Drug Dosing mL/min Estimated GFR (MDRD) (>60) mL/min BUN/Creatinine Ratio (14-18) Glucose (74-106) mg/dL POC Glucose 197 H 293 H (70-105) mg/dL Calcium (8.5-10.1) mg/dL Magnesium (1.8-2.4) mg/dl Triglycerides (<150) mg/dL Cholesterol (<200) mg/dL LDL Cholesterol Direct (<100) mg/dL HDL Cholesterol (40-59) mg/dL 05/06/17 05/06/17 05/06/17 Range/Units 06:28 06:28 10:28 WBC (4.23-9.07) K/mm3 RBC (4.63-6.08) M/mm3 Hgb (13.7-17.5) gm/L Hct (40.1-51.0) % MCV (79.0-92.2) fl MCH (25.7-32.2) pg MCHC (32.2-35.5) g/dl RDW Std Deviation (35.1-43.9) fL Plt Count (163-337) K/mm3 MPV (9.4-12.3) fl Neut % (Auto) (34.0-67.9) % Lymph % (Auto) (21.8-53.1) % Sabine % (Auto) (5.3-12.2) % Eos % (Auto) (0.8-7.0) Baso % (Auto) (0.1-1.2) % Neut # (Auto) (1.78-5.38) K/mm3 Lymph # (Auto) (1.32-3.57) K/mm3 Sabine # (Auto) (0.30-0.82) K/mm3 Eos # (Auto) (0.04-0.54) K/mm3 Baso # (Auto) (0.01-0.08) K/mm3 Sodium 137 (136-145) mEq/L Potassium 4.2 (3.5-5.1) mEq/L Chloride 103 (98-107) mEq/L Carbon Dioxide 25 (21-32) mEq/L Anion Gap 13.2 (5-15) BUN 13 (7-18) mg/dL Creatinine 0.9 (0.7-1.3) mg/dL Est Cr Clr Drug Dosing 124.54 mL/min Estimated GFR (MDRD) > 60 (>60) mL/min BUN/Creatinine Ratio 14.4 (14-18) Glucose 285 H (74-106) mg/dL POC Glucose 326 H (70-105) mg/dL Calcium 7.5 L (8.5-10.1) mg/dL Magnesium 1.7 L (1.8-2.4) mg/dl Triglycerides 539 H (<150) mg/dL Cholesterol 151 (<200) mg/dL LDL Cholesterol Direct 53 (<100) mg/dL HDL Cholesterol 21.0 L (40-59) mg/dL 05/06/17 Range/Units 17:06 WBC (4.23-9.07) K/mm3 RBC (4.63-6.08) M/mm3 Hgb (13.7-17.5) gm/L Hct (40.1-51.0) % MCV (79.0-92.2) fl MCH (25.7-32.2) pg MCHC (32.2-35.5) g/dl RDW Std Deviation (35.1-43.9) fL Plt Count (163-337) K/mm3 MPV (9.4-12.3) fl Neut % (Auto) (34.0-67.9) % Lymph % (Auto) (21.8-53.1) % Sabine % (Auto) (5.3-12.2) % Eos % (Auto) (0.8-7.0) Baso % (Auto) (0.1-1.2) % Neut # (Auto) (1.78-5.38) K/mm3 Lymph # (Auto) (1.32-3.57) K/mm3 Sabine # (Auto) (0.30-0.82) K/mm3 Eos # (Auto) (0.04-0.54) K/mm3 Baso # (Auto) (0.01-0.08) K/mm3 Sodium (136-145) mEq/L Potassium (3.5-5.1) mEq/L Chloride (98-107) mEq/L Carbon Dioxide (21-32) mEq/L Anion Gap (5-15) BUN (7-18) mg/dL Creatinine (0.7-1.3) mg/dL Est Cr Clr Drug Dosing mL/min Estimated GFR (MDRD) (>60) mL/min BUN/Creatinine Ratio (14-18) Glucose (74-106) mg/dL POC Glucose 284 H (70-105) mg/dL Calcium (8.5-10.1) mg/dL Magnesium (1.8-2.4) mg/dl Triglycerides (<150) mg/dL Cholesterol (<200) mg/dL LDL Cholesterol Direct (<100) mg/dL HDL Cholesterol (40-59) mg/dL Med Orders - Current: Current Medications Acetaminophen (Tylenol) 650 mg PO Q4H PRN PRN Reason: Pain (Mild 1-3)/fever Albuterol/Ipratropium (Duoneb 3.0-0.5 Mg/3 Ml) 3 ml NEB Q4H PRN PRN Reason: Shortness Of Breath/wheezing Amlodipine Besylate (Norvasc) 5 mg PO DAILY [facility] Last Admin: 05/06/17 08:50 Dose: 5 mg Dextrose/Water (Dextrose 50% In Water) 50 ml IVPUSH ASDIRECTED PRN PRN Reason: Hypoglycemia Hydralazine HCl (Apresoline) 20 mg PO Q6H PRN PRN Reason: Hypertension Hydralazine HCl (Apresoline) 20 mg IVPUSH Q6H PRN PRN Reason: Hypertension Last Admin: 05/06/17 14:00 Dose: 20 mg Insulin Aspart (Novolog) 0 unit SUBCUT QIDACANDBED [facility] PRN Reason: Protocol Last Admin: 05/06/17 17:11 Dose: 6 units Losartan Potassium (Cozaar) 150 mg PO DAILY [facility] Last Admin: 05/06/17 08:51 Dose: 150 mg Magnesium Oxide (Magnesium Oxide) 400 mg PO BID [facility] Last Admin: 05/06/17 10:45 Dose: 400 mg Metformin HCl (Glucophage) 1,000 mg PO BIDMEALS [facility] Last Admin: 05/06/17 17:11 Dose: 1,000 mg Metoprolol Tartrate (Lopressor) 5 mg IVPUSH Q4H PRN PRN Reason: Tachycardia Miscellaneous Information (Remove Patch) 1 ea TRDERM DAILY [facility] Last Admin: 05/06/17 08:53 Dose: 1 ea Nicotine (Habitrol) 21 mg TRDERM DAILY [facility] Last Admin: 05/06/17 08:53 Dose: 21 mg Ondansetron HCl (Zofran Odt) 4 mg PO Q6H PRN PRN Reason: nausea, able to take PO Ondansetron HCl (Zofran) 4 mg IV Q6H PRN PRN Reason: Nausea/Vomiting Rosuvastatin Calcium (Crestor) 10 mg PO DAILY [facility] Last Admin: 05/06/17 08:53 Dose: 10 mg Sodium Chloride (Saline Flush) 10 ml FLUSH ASDIRECTED PRN PRN Reason: Keep Vein Open Last Admin: 05/05/17 16:24 Dose: 10 ml Discontinued Medications Sodium Chloride (Normal Saline) 1,000 mls @ 999 mls/hr IV ONETIME ONE Stop: 05/05/17 17:13 Last Admin: 05/05/17 16:25 Dose: 999 mls/hr Sodium Chloride (Normal Saline) 1,000 mls @ 999 mls/hr IV ONETIME ONE Stop: 05/05/17 17:21 Last Admin: 05/05/17 17:36 Dose: 999 mls/hr Insulin Human Regular 100 unit (/ Sodium Chloride) 101 mls @ 0 mls/hr IV TITRATE [facility]; 0.05 UNIT/KG/HR PRN Reason: Protocol Last Admin: 05/05/17 18:56 Dose: 0.04 unit/kg/hr, 5.5 mls/hr Sodium Chloride (Normal Saline) 1,000 mls @ 100 mls/hr IV ASDIRECTED [facility] Last Admin: 05/06/17 06:43 Dose: 100 mls/hr Insulin Human Regular (Humulin R) 5 unit IV ONETIME ONE Stop: 05/05/17 17:47 Last Admin: 05/05/17 18:54 Dose: 5 unit Nicotine (Habitrol) 21 mg TRDERM ONETIME ONE Stop: 05/05/17 20:43 Last Admin: 05/05/17 20:51 Dose: 21 mg - Exam Quality Assessment: DVT Prophylaxis General: Alert, Oriented, No Acute Distress HEENT: Pupils Equal, Pupils Reactive Neck: Supple, Trachea Midline Lungs: Normal Respiratory Effort Cardiovascular: Regular Rate, Regular Rhythm GI/Abdominal Exam: Normal Bowel Sounds, Soft, Non-Tender, No Organomegaly, No Distention (Male) Exam: Deferred Back Exam: Normal Inspection Extremities: Normal Inspection Skin: Warm Neurological: No New Focal Deficit Psy/Mental Status: Alert, Normal Affect, Normal Mood - Problem List Review Problem List Initiated/Reviewed/Updated: Yes - My Orders Last 24 Hours: My Active Orders 05/06/17 09:00 Remove Patch 1 ea TRDERM DAILY 05/06/17 13:09 Ready for Discharge [RC] PER UNIT ROUTINE 05/06/17 13:53 hydrALAZINE [Apresoline] 20 mg IVPUSH Q6H PRN - Plan Plan:: I/P: Hyperglycemia with Type II DM -Blood glucose reportedly 826 at [place], 584 at ED presentation and 271 prior to being admitted for observation -ABG good -Serum osmolality 314 -Anion gap 12.9 -Given 1L bolus at [place] and multiple boluses of NS in ED -Insulin drip started in ED - discontinued -A1C reportedly 14.9 at [place] -Pt. reports he has glucometer at home but never checks sugars as he "is afraid of needles." -He reportedly sees primary special educator at [place] -Had conversation with patient about possible complications of diabetes including blindness, limb amputation, cardiac complications, and ED. -ADA diet -Hold oral diabetic meds for now -Sliding scale insulin with blood glucose checks as ordered -Fluids as ordered -software educator consult -Dietitian consult Chronic: HTN - home meds and PRN BP meds; requires tighter control for reaching goal of <130/90 GERD - stable Chronic headaches Tobacco use disorder -nicotine patch and smoking cessation counseling Obesity - dietitian consult Plan: Admit to observation with telemetry. CM/SW for discharge planning Home medications as indicated Routine AM labs PE/DVT prophylaxis: ambulation and VASYL Hose Other orders as indicated above Code status: DNR/DNI. His PCP is Tania Lam PA-C at here in [place] 05/07/17
[2017-05-06] MEDS ORDERED: amLODIPine 5 MG Tab PO ONE (19:02)
[2017-05-06] MEDS: Terazosin 1 MG Cap PO SCH ×2 (21:36)
[2017-05-06] MEDS ORDERED: Nicotine 21 MG/24 Hr Patch TRDERM ONE (21:44)
[2017-05-07] MEDS: metFORMIN 500 MG Tab PO SCH (06:39)
[2017-05-07] MEDS: Insulin Aspart 100 Units/ML 3 ML Pen SUBCUT SCH (07:32)
[2017-05-07] MEDS: Rosuvastatin 10 MG Tab PO SCH (08:11)
[2017-05-07] MEDS: Losartan 100 MG Tab PO SCH (08:11)
[2017-05-07] MEDS: Nicotine 21 MG/24 Hr Patch TRDERM SCH (08:12)
[2017-05-07] MEDS: Magnesium Oxide 400 MG Tab PO SCH (08:12)
--- NOTE | 2017-05-07 08:19 | PCM.DCSUM1 ---
Discharge Summary - Hospital Course Free Text/Narrative:: Jhony Wong is a 36 yo male who presented to our ED today after being sent over from [facility] in [place]. He was seen today by GIOVANA Cisneros for nausea, vomiting and abdominal discomfort. He reports symptoms have been ongoing for the last 3 days. He was found to have a blood sugar of 826. His known diabetic currently on Farxiga and metformin twice a day. He was given 1 L of fluids at the clinic and told to report to the ER for further treatment. Prior to presenting across the street in the ED he reportedly went to [place] to eat some chicken nuggets. In the ER he reported nausea, vomiting, and abdominal discomfort. Denied any headaches. A1c was checked at [place] and found to be 14.9. He reported he sees a certified adaptive physical educator, however he states he "never checks his blood sugars." While in the ED he also complained of some chest pain that has been present for the last month. He had not seen anybody for this. Once in the ER at 12-lead EKG was obtained. His high worker by the ER provider as normal sinus rhythm at 93 bpm. There was no ectopy noted and no changes from prior EKG obtained 09/05/16. Vital signs were temp normal at 36.6 Celsius. Pulse 100. Respirations slightly elevated at 24. Blood pressure 150/102. Pulse ox 94. Labs were obtained: WBC slightly elevated at 9.98. Hemoglobin normal at 15.9 and hematocrit 45.2. He was normocytic. Platelet normal at 203, 000. Neutrophils normal at 54.5%. ABG was obtained and the left radial. PH normal at 7.42. PCO2 normal at 39.1. PO2 normal at 84. Bicarbonate normal at 25. Oxygen saturation elevated at 97.6. Base excess 1.1. This is on 0 L of oxygen. Sodium was slightly low at 134. Potassium normal 3.9. Chloride 98. Carbon dioxide 27. Anion gap was normal at 12.9. BUN was normal at 17. Creatinine on the high end of normal at 1.2. EGFR greater than 60. Glucose on presentation to the ED was 584. Serum osmolality high at 314. Calcium 8.6. Magnesium 2.0. Total bilirubin 0.4. Liver enzymes were good with AST at 29. ALT 43. Alkaline phosphatase at 104. Troponin and was negative at 0.017. CRP was 0.7. Albumin was low at 2.8. UA was negative however one plus protein and 2+ glucose was noted. There was trace intact urine occult blood. Few urine bacteria were seen. Urine ketones were normal at 0.15. The patient was given multiple saline boluses as well as an insulin drip. Humulin R 5 units was given. A 21 mg Habitrol patch was also applied. Chest x-ray was obtained and no acute changes were noted pending radiologist read. The patient carries a medical history of hypertension, GERD, chronic headaches, type II DM. He is a current every day smoker and reports one to 2 packs daily. He was subsequently admitted for observation to the medical floor. He would like to be a DNR/DNI. His PCP is Tania Lam PA-C at [facility] here in [place]. Patient's A1C is 14.9. He met with CDE to discuss insulin dosing and general education. He is in agreement to cont with CDE at [facility] [place] after discharge. Diet was advanced and tolerated without n/v/d. He is started on metformin 1000mg BID without GI side effects. He was ambulatory. He was having nicotine withdrawl despite having nicotine patch on. He was irritable and agitated with multiple staff members. He refused to touch his insulin pen for SSI coverage; he is very unwilling to take ownership of this lifelong disease; his fiance will be giving him his insulin at home and is agreeable to this. He is started on Levemir 12 units daily and is to follow up with CDE for titration to blood sugar target; he will not be discharged on SSI as he is adamant that he will not take it during the day, works long hours and again admits he will not do this. He is started on baby ASA, he is on statin and ACEI. Per prior PCP, CARLENE Cisneros she requests patient f/up/consult with [employer], Dr. Hale for further diabetes care. He is to follow up with her within one week of discharge, will see CDE this same day. - Discharge Data Discharge Date: 05/07/17 Discharge Disposition: Home, Self-Care 01 Condition: Good - Patient Summary/Data Operative Procedure(s) Performed: None Complications: None Consults: Consultations 05/05/17 21:52 Consult to Case Management [CONS] Routine Consult to Accounts Collector [CONS] Routine Consult to [employer] [CONS] Routine 05/05/17 22:13 Consult to Diabetic Nurse Specialist [CONS] Routine Labs Pending at D/C: None Recommended Follow-up Testing/Procedures: Patient DC instructions: PCP, Tania Lam recommends consult/follow up with Internal medicine, Dr. Mechelle Hale - follow up within one week Follow up with Gurpreet; Business Sales Consultant- Priscilla Curtis- same day as consult with Dr. Hale -Patient requests appointments after 1400 Diabetic and heart healthy diet; avoid sugary drinks, soda, alcohol Exercise daily; recommendations for 150 minutes per week Push fluids, drink lots of water; 10 glasses per day Check blood sugars before meals and at bedtime- record and bring record with to all Dr. visits and diabetic ed visits Recommend Stop smoking; [id number] is [place] quit line that offers support and free patches, among other things, to help with this. Planned Operative Procedure(s) after DC: None Hospital Course: As above - Patient Instructions Diet: Heart Healthy Diet, Drink 8-10+ Glasses/Day, No Alcoholic Beverages, Diabetic Diet Activity: As Tolerated Driving: May Drive Today Showering/Bathing: May Shower Notify Provider of: Nausea and/or Vomiting - Discharge Plan Prescriptions/Med Rec: amLODIPine [Norvasc] 10 mg PO DAILY #30 tablet Aspirin 81 mg PO BEDTIME #30 tab.chew Terazosin [Hytrin] 1 mg PO BEDTIME #30 cap Home Medications: Home Meds Blood-Glucose Meter, Drum-Type [Accu-Chek] 1 each ASDIRECTED #1 kit 09/05/16 [Rx] Lancets [Accu-Chek] 1 each ASDIRECTED #1 box 09/05/16 [Rx] amLODIPine/Valsartan [Amlodipine-Valsartan 5-320 mg] 10 - 320 mg PO DAILY [History] atorvaSTATin [Lipitor] 40 mg PO DAILY 05/05/17 [History] Aspirin 81 mg PO BEDTIME #30 tab.chew 05/07/17 [Rx] Terazosin [Hytrin] 1 mg PO BEDTIME #30 cap 05/07/17 [Rx] amLODIPine [Norvasc] 10 mg PO DAILY #30 tablet 11/09/17 [Rx] Patient Handouts: Smoking Cessation, Tips for Success, [id number], Smoking Hazards, Type 1 Diabetes Mellitus, Adult, Hyperglycemia, [id number], Obesity, Tobacco Use Disorder, Blood Glucose Monitoring, Adult Forms: ED Department Discharge Referrals: Tania Lam PA-C [Primary Care Provider] - - Discharge Summary/Plan Comment DC Time >30 min.: Yes (40 min) - General Info Date of Service: 05/07/17 Admission Dx/Problem (Free Text: Patient is seen this morning, significant other at bedside. Slept "ok". Denies pain. Eating and drinking without problems, no n/v or abd pain. He has been very rude and inappropriate to nursing; refusing to even tough his insulin pen stating "she will do it", significant other. Patient is unwilling to take ownership of this disease. Functional Status: Reports: Pain Controlled, Tolerating Diet, Ambulating, Urinating. Denies: New Symptoms - Review of Systems General: Reports: No Symptoms HEENT: Reports: No Symptoms Pulmonary: Reports: No Symptoms Cardiovascular: Reports: No Symptoms Gastrointestinal: Reports: No Symptoms Genitourinary: Reports: No Symptoms Musculoskeletal: Reports: No Symptoms Skin: Reports: No Symptoms Neurological: Reports: No Symptoms Psychiatric: Reports: Agitation (irritable) - Patient Data Vitals - Most Recent: Last Vital Signs Temp 97.5 F 05/07/17 04:00 Pulse 89 05/07/17 04:00 Resp 16 05/07/17 04:00 BP 135/83 05/07/17 04:00 Pulse Ox 95 05/07/17 04:00 Weight - Most Recent: 236 lb 12.8 oz I&O - Last 24 hours: Intake & Output 05/06/17 05/07/17 05/07/17 22:59 06:59 14:59 Intake Total 2700 1100 Output Total 2800 3350 Balance -100 -2250 Lab Results - Last 24 hrs: Laboratory Results - last 24 hr 05/06/17 05/06/17 05/06/17 Range/Units 06:28 10:28 17:06 WBC (4.23-9.07) K/mm3 RBC (4.63-6.08) M/mm3 Hgb (13.7-17.5) gm/L Hct (40.1-51.0) % MCV (79.0-92.2) fl MCH (25.7-32.2) pg MCHC (32.2-35.5) g/dl RDW Std Deviation (35.1-43.9) fL Plt Count (163-337) K/mm3 MPV (9.4-12.3) fl Neut % (Auto) (34.0-67.9) % Lymph % (Auto) (21.8-53.1) % Mcdonough % (Auto) (5.3-12.2) % Eos % (Auto) (0.8-7.0) Baso % (Auto) (0.1-1.2) % Neut # (Auto) (1.78-5.38) K/mm3 Lymph # (Auto) (1.32-3.57) K/mm3 Mcdonough # (Auto) (0.30-0.82) K/mm3 Eos # (Auto) (0.04-0.54) K/mm3 Baso # (Auto) (0.01-0.08) K/mm3 Sodium (136-145) mEq/L Potassium (3.5-5.1) mEq/L Chloride (98-107) mEq/L Carbon Dioxide (21-32) mEq/L Anion Gap (5-15) BUN (7-18) mg/dL Creatinine (0.7-1.3) mg/dL Est Cr Clr Drug Dosing mL/min Estimated GFR (MDRD) (>60) mL/min BUN/Creatinine Ratio (14-18) Glucose (74-106) mg/dL POC Glucose 326 H 284 H (70-105) mg/dL Calcium (8.5-10.1) mg/dL Magnesium (1.8-2.4) mg/dl Triglycerides 539 H (<150) mg/dL Cholesterol 151 (<200) mg/dL LDL Cholesterol Direct 53 (<100) mg/dL HDL Cholesterol 21.0 L (40-59) mg/dL 05/06/17 05/07/17 05/07/17 Range/Units 21:24 06:07 06:13 WBC 6.50 (4.23-9.07) K/mm3 RBC 5.83 (4.63-6.08) M/mm3 Hgb 16.2 (13.7-17.5) gm/L Hct 46.7 (40.1-51.0) % MCV 80.1 (79.0-92.2) fl MCH 27.8 (25.7-32.2) pg MCHC 34.7 (32.2-35.5) g/dl RDW Std Deviation 39.8 (35.1-43.9) fL Plt Count 203 (163-337) K/mm3 MPV 9.9 (9.4-12.3) fl Neut % (Auto) 51.2 (34.0-67.9) % Lymph % (Auto) 35.8 (21.8-53.1) % Mcdonough % (Auto) 9.7 (5.3-12.2) % Eos % (Auto) 2.6 (0.8-7.0) Baso % (Auto) 0.2 (0.1-1.2) % Neut # (Auto) 3.33 (1.78-5.38) K/mm3 Lymph # (Auto) 2.33 (1.32-3.57) K/mm3 Mcdonough # (Auto) 0.63 (0.30-0.82) K/mm3 Eos # (Auto) 0.17 (0.04-0.54) K/mm3 Baso # (Auto) 0.01 (0.01-0.08) K/mm3 Sodium (136-145) mEq/L Potassium (3.5-5.1) mEq/L Chloride (98-107) mEq/L Carbon Dioxide (21-32) mEq/L Anion Gap (5-15) BUN (7-18) mg/dL Creatinine (0.7-1.3) mg/dL Est Cr Clr Drug Dosing mL/min Estimated GFR (MDRD) (>60) mL/min BUN/Creatinine Ratio (14-18) Glucose (74-106) mg/dL POC Glucose 233 H 227 H (70-105) mg/dL Calcium (8.5-10.1) mg/dL Magnesium (1.8-2.4) mg/dl Triglycerides (<150) mg/dL Cholesterol (<200) mg/dL LDL Cholesterol Direct (<100) mg/dL HDL Cholesterol (40-59) mg/dL 05/07/17 Range/Units 06:13 WBC (4.23-9.07) K/mm3 RBC (4.63-6.08) M/mm3 Hgb (13.7-17.5) gm/L Hct (40.1-51.0) % MCV (79.0-92.2) fl MCH (25.7-32.2) pg MCHC (32.2-35.5) g/dl RDW Std Deviation (35.1-43.9) fL Plt Count (163-337) K/mm3 MPV (9.4-12.3) fl Neut % (Auto) (34.0-67.9) % Lymph % (Auto) (21.8-53.1) % Mcdonough % (Auto) (5.3-12.2) % Eos % (Auto) (0.8-7.0) Baso % (Auto) (0.1-1.2) % Neut # (Auto) (1.78-5.38) K/mm3 Lymph # (Auto) (1.32-3.57) K/mm3 Mcdonough # (Auto) (0.30-0.82) K/mm3 Eos # (Auto) (0.04-0.54) K/mm3 Baso # (Auto) (0.01-0.08) K/mm3 Sodium 134 L (136-145) mEq/L Potassium 4.0 (3.5-5.1) mEq/L Chloride 103 (98-107) mEq/L Carbon Dioxide 21 (21-32) mEq/L Anion Gap 14.0 (5-15) BUN 15 (7-18) mg/dL Creatinine 0.8 (0.7-1.3) mg/dL Est Cr Clr Drug Dosing 140.11 mL/min Estimated GFR (MDRD) > 60 (>60) mL/min BUN/Creatinine Ratio 18.8 H (14-18) Glucose 246 H (74-106) mg/dL POC Glucose (70-105) mg/dL Calcium 7.6 L (8.5-10.1) mg/dL Magnesium 1.9 (1.8-2.4) mg/dl Triglycerides (<150) mg/dL Cholesterol (<200) mg/dL LDL Cholesterol Direct (<100) mg/dL HDL Cholesterol (40-59) mg/dL Med Orders - Current: Current Medications Acetaminophen (Tylenol) 650 mg PO Q4H PRN PRN Reason: Pain (Mild 1-3)/fever Albuterol/Ipratropium (Duoneb 3.0-0.5 Mg/3 Ml) 3 ml NEB Q4H PRN PRN Reason: Shortness Of Breath/wheezing Amlodipine Besylate (Norvasc) 10 mg PO DAILY [facility] Last Admin: 05/07/17 08:12 Dose: 10 mg Dextrose/Water (Dextrose 50% In Water) 50 ml IVPUSH ASDIRECTED PRN PRN Reason: Hypoglycemia Hydralazine HCl (Apresoline) 20 mg PO Q6H PRN PRN Reason: Hypertension Hydralazine HCl (Apresoline) 20 mg IVPUSH Q6H PRN PRN Reason: Hypertension Last Admin: 05/06/17 14:00 Dose: 20 mg Hydrochlorothiazide (Hydrochlorothiazide) 25 mg PO DAILY [facility] Last Admin: 05/07/17 08:11 Dose: 25 mg Insulin Aspart (Novolog) 0 unit SUBCUT QIDACANDBED [facility] PRN Reason: Protocol Last Admin: 05/07/17 07:32 Dose: 4 units Losartan Potassium (Cozaar) 150 mg PO DAILY [facility] Last Admin: 05/07/17 08:11 Dose: 150 mg Magnesium Oxide (Magnesium Oxide) 400 mg PO BID [facility] Last Admin: 05/07/17 08:12 Dose: 400 mg Metformin HCl (Glucophage) 1,000 mg PO BIDMEALS [facility] Last Admin: 05/07/17 06:39 Dose: 1,000 mg Metoprolol Tartrate (Lopressor) 5 mg IVPUSH Q4H PRN PRN Reason: Tachycardia Miscellaneous Information (Remove Patch) 1 ea TRDERM DAILY [facility] Last Admin: 05/07/17 08:12 Dose: 1 ea Nicotine (Habitrol) 21 mg TRDERM DAILY [facility] Last Admin: 05/07/17 08:12 Dose: 21 mg Ondansetron HCl (Zofran Odt) 4 mg PO Q6H PRN PRN Reason: nausea, able to take PO Ondansetron HCl (Zofran) 4 mg IV Q6H PRN PRN Reason: Nausea/Vomiting Rosuvastatin Calcium (Crestor) 10 mg PO DAILY [facility] Last Admin: 05/07/17 08:11 Dose: 10 mg Sodium Chloride (Saline Flush) 10 ml FLUSH ASDIRECTED PRN PRN Reason: Keep Vein Open Last Admin: 05/05/17 16:24 Dose: 10 ml Terazosin HCl (Hytrin) 1 mg PO BEDTIME [facility]A Last Admin: 05/06/17 21:36 Dose: 1 mg Discontinued Medications Amlodipine Besylate (Norvasc) 5 mg PO DAILY [facility] Last Admin: 05/06/17 08:50 Dose: 5 mg Amlodipine Besylate (Norvasc) 5 mg PO ONETIME ONE Stop: 05/06/17 19:03 Last Admin: 05/06/17 19:24 Dose: 5 mg Sodium Chloride (Normal Saline) 1,000 mls @ 999 mls/hr IV ONETIME ONE Stop: 05/05/17 17:13 Last Admin: 05/05/17 16:25 Dose: 999 mls/hr Sodium Chloride (Normal Saline) 1,000 mls @ 999 mls/hr IV ONETIME ONE Stop: 05/05/17 17:21 Last Admin: 05/05/17 17:36 Dose: 999 mls/hr Insulin Human Regular 100 unit (/ Sodium Chloride) 101 mls @ 0 mls/hr IV TITRATE SERA; 0.05 UNIT/KG/HR PRN Reason: Protocol Last Admin: 05/05/17 18:56 Dose: 0.04 unit/kg/hr, 5.5 mls/hr Sodium Chloride (Normal Saline) 1,000 mls @ 100 mls/hr IV ASDIRECTED SERA Last Admin: 05/06/17 06:43 Dose: 100 mls/hr Insulin Human Regular (Humulin R) 5 unit IV ONETIME ONE Stop: 05/05/17 17:47 Last Admin: 05/05/17 18:54 Dose: 5 unit Nicotine (Habitrol) 21 mg TRDERM ONETIME ONE Stop: 05/05/17 20:43 Last Admin: 05/05/17 20:51 Dose: 21 mg Nicotine (Habitrol) 21 mg TRDERM ONETIME ONE Stop: 05/06/17 21:45 Last Admin: 05/06/17 21:48 Dose: 21 mg - Exam Quality Assessment: Reports: DVT Prophylaxis General: Reports: Alert, Oriented, No Acute Distress HEENT: Reports: Pupils Equal, EOMI, Mucous Membr. Moist/[place] Neck: Reports: Supple Lungs: Reports: Clear to Auscultation, Normal Respiratory Effort Cardiovascular: Reports: Regular Rate, Regular Rhythm (Male) Exam: Deferred Rectal (Males) Exam: Deferred Extremities: Normal Inspection Neurological: Reports: No New Focal Deficit Psy/Mental Status: Reports: Alert, Other (agitated and irritable with staff today) *Q Meaningful Use (DIS) - VTE *Q VTE Criteria *Q: - Stroke *Q Stroke Criteria *Q: - AMI *Q AMI Criteria *Q:
[2017-05-07 08:24] VITALS: BP 162/106
[2017-05-07] MEDS ORDERED: amLODIPine 10 MG Tab PO SCH (09:00)
[2017-05-07] MEDS ORDERED: Insulin Detemir 100 Units/ML 3 ML Pen SUBCUT SCH (09:00)
[2017-05-07] MEDS ORDERED: Hydrochlorothiazide 25 MG Tab PO SCH (09:00)
== END 2017-05-07 10:20 | disposition home or self-care (01) ==
LOC: JD.ED 15:57 → JD.MS 20:10
PROVIDERS: ADMIT Internal Medicine Cardiovascular Disease; ATTEND Internal Medicine Cardiovascular Disease
DX: E11.65 Type 2 diabetes mellitus with hyperglycemia (principal); I10 Essential (primary) hypertension; K21.9 Gastro-esophageal reflux disease without esophagitis; E66.9 Obesity, unspecified; F17.210 Nicotine dependence, cigarettes, uncomplicated; Z79.84 Long term (current) use of oral hypoglycemic drugs; Z79.899 Other long term (current) drug therapy
CPT/HCPCS: 36415; 36600; 71010; 80048; 80053; 80061; 81001; 82009; 82803; 82962; 83735; 83930; 84484; 85025; 86140; 93005; 96360; 96361; 96376; 99285; A9270; J0360; J1815; J1817; J7030; J7040; J7050; 96365; 96366; 96374; 99217; 99220; 99224; G0378